=== PATIENT | female | born 2000 | race Caucasian/White ===

== ENCOUNTER → 2021-03-11 10:53 | Outpatient (CLI) | payer OTHER, SELFPAY ==
--- NOTE | ~2021-03-11 | US_ITS ---
EXAMINATION: US transvaginal DATE: 03/11/2021 11:28 INDICATION: Pelvic pain TECHNIQUE: Multiple transabdominal and endovaginal sonographic images of the pelvis were obtained. COMPARISON: None. FINDINGS: The uterus measures 6.6 x 2.9 x 3.9 cm. The endometrial complex measures 4 mm in thickness. The righ t ovary measures 1.8 x 1.5 x 1.4 cm. The left ovary measures 2.6 x 1.8 x 2.1 cm. Vascular flow with a rterial waveforms identified in both ovaries on color Doppler. There is no free fluid in the pelvis. IMPRESSION: 1. Normal pelvic ultrasound. Reviewed, dictated and finalized at location B.
== END ==
PROVIDERS: Visit Provider Obstetrics & Gynecology Gynecology
DX: R10.2 Pelvic and perineal pain (principal)
CPT/HCPCS: 76830